=== PATIENT | male | born 1985 | race Caucasian/White ===

== ENCOUNTER 2020-06-04 13:11 | Emergency (ER) | payer BC ==
[~2020-06-04] VITALS: Ht 665.5 cm; Wt 86.2 kg
--- NOTE | 2020-06-04 14:10 | NUR ---
surgical unavailable, crutches provided.
== END 2020-06-04 14:23 | disposition home or self-care (01) ==
LOC: ER 13:11
DX: S90.111A Contusion of right great toe without damage to nail, initial encounter (principal); M79.674 Pain in right toe(s); W22.09XA Striking against other stationary object, initial encounter; Y92.89 Other specified places as the place of occurrence of the external cause; R26.2 Difficulty in walking, not elsewhere classified
CPT/HCPCS: 73630; A4663

== ENCOUNTER 2020-06-20 12:50 | Emergency (ER) | payer BC ==
[~2020-06-20] VITALS: Ht 185.4 cm; Wt 83.9 kg
[2020-06-20] MEDS ORDERED: IBUPROFEN 800 MG TABLET PO ONE (13:45)
[2020-06-20] MEDS ORDERED: IBUPROFEN 800 MG TABLET ONE (13:54)
[2020-06-20] MEDS ORDERED: HYDR-3972 PO (13:56)
[2020-06-20] MEDS ORDERED: IBUP-1957 PO (13:56)
--- NOTE | 2020-06-20 14:04 | NUR ---
PATIENT WAS SEEN BY DR VANEGAS. XRAYS COMPLETE. PAIN MED GIVEN ORDERED. SPINT APPLIED BY KARO ONEILL. DC, RX (INCLUDING ALL NARCOTIC PRECAUTIONS) AND FOLLOW UP INSRUCTIONS GIVEN AND EXPLAINED TO PATIENT WHO STATES HE UNDERSTANDS ALL INSTRUCTIONS PATIENT KNOWS TO FOLLOW UP WITH ORTHO
== END 2020-06-20 14:05 | disposition home or self-care (01) ==
LOC: ER 12:50
DX: S62.316A Displaced fracture of base of fifth metacarpal bone, right hand, initial encounter for closed fracture (principal); S62.101A Fracture of unspecified carpal bone, right wrist, initial encounter for closed fracture; W22.09XA Striking against other stationary object, initial encounter; Y92.89 Other specified places as the place of occurrence of the external cause; Z72.0 Tobacco use
CPT/HCPCS: 73110; 73130; A4663

== ENCOUNTER 2021-06-02 17:37 | Emergency (ER) | payer BC ==
[~2021-06-02] VITALS: Ht 185.4 cm; Wt 81.6 kg
[~2021-06-02 17:37] MED LIST: HYDR-3972 PO; IBUP-1957 PO
--- NOTE | 2021-06-02 17:46 | NUR ---
at bedside to examine pt.
[2021-06-02] MEDS ORDERED: ACETAMINOPHEN 325 MG TABLET PO ONE (18:00)
[2021-06-02] MEDS ORDERED: ACETAMINOPHEN 325 MG TABLET ONE (18:06)
--- NOTE | 2021-06-02 19:00 | NUR ---
Attempts to place pt on Colles splint and refused it requesting to speak with .
--- NOTE | 2021-06-02 19:06 | NUR ---
DCD instructions given to pt. who verbalized understanding. Left room AAOX4. vitals stable no c/of pain.
== END 2021-06-02 19:06 | disposition home or self-care (01) ==
LOC: ER 17:41
DX: M79.89 Other specified soft tissue disorders (principal); M79.641 Pain in right hand; Z87.81 Personal history of (healed) traumatic fracture
CPT/HCPCS: 73130; A4663

== ENCOUNTER 2021-06-22 05:00 | Emergency (ER) | payer BC ==
[~2021-06-22] VITALS: Ht 185.4 cm; Wt 86.2 kg
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
--- NOTE | 2021-06-22 05:15 | NUR ---
Bebeto MATA AT BEDSIDE, MSE IN PROGRESS.
--- NOTE | 2021-06-22 05:24 | NUR ---
XRAY AT BEDSIDE.
[2021-06-22] MEDS ORDERED: HYDR-4209 PO (05:45)
[2021-06-22] MEDS ORDERED: ONDANSETRON ODT 4 MG TAB.RAPDIS ONE (05:58)
[2021-06-22] MEDS ORDERED: HYDROCODONE/APAP 5-325MG TABLET ONE (05:58)
[2021-06-22 06:00] VITALS: BP 112/86
[2021-06-22] MEDS ORDERED: HYDROCODONE/APAP 10-325 MG TABLET PO ONE (06:00)
[2021-06-22] MEDS ORDERED: ONDANSETRON ODT 4 MG TAB.RAPDIS SL ONE (06:00)
[2021-06-22] MEDS ORDERED: HYDROCODONE/APAP 5-325MG TABLET PO ONE (06:00)
--- NOTE | 2021-06-22 06:00 | NUR ---
Patient discharged to home in stable condition. Written and verbal after care instructions given. Patient verbalizes understanding of instructions. Stressed follow up or return to ER for worsening s/s. Steady gait, no N/V/D. Accompanied by significant other.
== END 2021-06-22 06:01 | disposition home or self-care (01) ==
LOC: ER 05:08
DX: S60.221D Contusion of right hand, subsequent encounter (principal); W51.XXXD Accidental striking against or bumped into by another person, subsequent encounter
CPT/HCPCS: 73130; A4663; Q0162

== ENCOUNTER 2021-08-01 22:03 | Emergency (ER) | payer BC ==
[~2021-08-01] VITALS: Ht 185.4 cm; Wt 83.9 kg
[~2021-08-01 22:03] MED LIST changes: +HYDR-4209 PO
--- NOTE | 2021-08-01 22:45 | NUR ---
Dr Harkins at bedside, MSE in progress.
--- NOTE | 2021-08-01 23:00 | NUR ---
Patient discharged to home in stable condition. Written and verbal after care instructions given. Patient verbalizes understanding of instructions. Stressed follow up or return to ER for worsening s/s. pt ambulated with steady gait. no SOB. no chest pain. AOx4.
[2021-08-01 23:03] VITALS: BP 138/67
== END 2021-08-01 23:04 | disposition home or self-care (01) ==
LOC: ER 22:03
DX: R13.10 Dysphagia, unspecified (principal); R03.0 Elevated blood-pressure reading, without diagnosis of hypertension
CPT/HCPCS: A4663

== ENCOUNTER 2022-03-30 15:48 | Emergency (ER) | payer BC ==
[~2022-03-30] VITALS: Ht 185.4 cm; Wt 83.9 kg
[2022-03-30 19:57] LABS: HEMATOCRIT 47.2 % (36.7-47.1); MEAN CORPUSCULAR HEMOGLOBIN 31.1 uug (23.8-33.4); MEAN CORPUSCULAR VOLUME 91.4 fL (73.0-96.2); PLATELET COUNT (AUTO) 257 K/uL (152-348)
[2022-03-30 20:20] LABS: BILIRUBIN,TOTAL 0.5 mg/dL (0.2-1.0); CREATININE 1.2 mg/dL (0.6-1.3); POTASSIUM 4.6 mmol/L (3.5-5.1); TOTAL PROTEIN, SERUM 7.8 g/dL (6.4-8.2)
[2022-03-30] MEDS ORDERED: MUPI15CR TP (20:47)
[2022-03-30] MEDS ORDERED: VALA100026 PO (20:48)
[2022-03-30 20:59] VITALS: BP 118/90
== END 2022-03-30 21:00 | disposition home or self-care (01) ==
LOC: ER 15:50
DX: R21 Rash and other nonspecific skin eruption (principal)
CPT/HCPCS: 36415; 85025; A4663